=== PATIENT | female | born 1980 | race Caucasian/White ===

== ENCOUNTER → 2023-12-07 15:19 | Outpatient (REF) | payer BC, SELFPAY | LOC: HWRAD 15:19 | PROVIDERS: ATTENDING PHYSICIAN Registered Nurse | DX: M53.3 Sacrococcygeal disorders, not elsewhere classified (principal); L72.0 Epidermal cyst | CPT/HCPCS: 76705 ==

== ENCOUNTER 2025-01-26 14:56 | Emergency (ER) | payer BC, SELFPAY ==
[2025-01-26 15:05] VITALS: BP 139/97
[2025-01-26 15:44] LABS: Hematocrit 37.9 % (37.0-47.0); Hemoglobin 12.9 g/dL (12.0-16.0); Mean Corp Hgb Conc. 34.0 g/dL (33.0-37.0); Mean Corpuscular Volume 96.7 fL (81.0-99.0); Nucleated Red Blood Cells % 0 %; Platelet Count 248 10^3/uL (130-400); Red Cell Dist. Width 13.1 % (11.5-14.5)
[2025-01-26 15:47] LABS: HCG, Serum Qualitative Screen Negative
[2025-01-26 15:55] LABS: ALT (SGPT) 16 U/L (0-35); AST (SGOT) 20 U/L (14-36); Albumin 4.5 g/dl (3.5-5.0); Alkaline Phosphatase 53 U/L (38-126); Blood Urea Nitrogen 14 mg/dl (7-17); Calcium 9.4 mg/dl (8.4-10.2); Carbon Dioxide 25 mmol/L (22-30); Chloride 106 mmol/L (98-107); Glucose 103 mg/dl (70-99); Lipase 76 U/L (23-300); Potassium 3.6 mmol/L (3.5-5.1); Sodium 138 mmol/L (135-145); Total Protein 7.2 g/dl (6.3-8.2); eGFR > 60.00
[2025-01-26 15:55] LABS: Urine Character Clear (Clear)
[2025-01-26 16:21] LABS: Urine Red Blood Cell 0-2 /HPF (0-2); Urine Squamous Cell 16-20 /LPF (Few); Urine White Cell 0-2 /HPF (0-5)
--- NOTE | 2025-01-26 19:47 | ED.GENMED ---
History of Present Illness
General
Chief Complaint: Abdominal Symptoms
Source: patient
Exam Limitations: none
Time Seen by Provider: 01/26/25 19:35
History of Present Illness
History of Present Illness:
44yoF with no significant past medical history presenting with her for evaluation of abdominal pain. Symptoms initially began yesterday morning. She reports a sharp pain in her left lower quadrant which has been constant since it began.
Pain is worse with movement and palpation but improves if she is standing or sitting erect. She initially thought her pain was related to an ovulation cramp but she has never had pain last this long before. Pain is nonradiating. She was seen by
her PCP today who ordered an outpatient CT scan. This was unable to be scheduled so she was sent to the ED for evaluation. Last bowel movement was yesterday which was loose. She denies any dysuria, urinary frequency, fevers, vomiting. LMP
finished a few days ago. Prior abdominal surgeries include an umbilical hernia repair as an .
Phy Exam
General Physical Exam
General Presentation: well appearing and no apparent distress
General Skin: warm and dry
General Habitus: normal
General Mental: alert
ENT Exam
ENT Exam: normocephalic
Pulmonary Exam
Pulmonary Exam: no respiratory distress
Gastrointestinal Exam
Gastrointestinal Exam: soft, non distended and other (+Focal tenderness in LLQ. No guarding.)
Neurological Exam
Neurological Exam: alert
M[place] Coma Scale
Eye Opening: Spontaneous
Verbal Response: Oriented
Motor Response: Obeys Commands
GCS Total Score: 15
Skin Exam
Skin Exam: normal color and warm/dry
Psychiatric Exam
Psychiatric Exam: normal mood/affect
Course
Orders/Labs/Results
Orders:
Orders
01/26/25 15:13
Test Result ONCE
01/26/25 15:21
Complete Blood Count/With Diff Urgent
Comprehensive Metabolic Panel Urgent
HCG, Serum Qualitative Screen Urgent
Lipase Urgent
01/26/25 15:22
Urinalysis Reflex To Culture Urgent
Date Specimen was Collected: 01/26/25
Time Specimen was Collected: 15:14
Urine Microscopic Reflex Cult Urgent
01/26/25 19:31
CT Abd/Pel (IV only)-DH only Urgent
Comment:
Reason For Exam: llq pain
01/26/25 19:46
0.9% Sodium Chloride 1000 ml [Nss] 1,000 ml IV BOLUS
Ketorolac [Toradol] 15 mg IV NOW STA
01/26/25 20:41
HYDROmorphone [Dilaudid] 0.5 mg IV NOW STA
01/26/25 21:42
Amoxicillin 875 mg/Clav 125 mg [Augmentin 875 mg/125 mg] 1 tablet PO NOW STA
Abnormal Lab Results
01/26/25 01/26/25
15:21 15:22
WBC 14.9 H 10^3/uL
(4.8-10.8)
RBC 3.92 L 10^6/uL
(4.20-5.40)
MCH 32.9 H pg
(27.0-31.0)
Abs Immat Gran (auto) 0.1 H 10^3/uL
(0-0.05)
Absolute Neuts (auto) 11.1 H 10^3/uL
(1.4-6.5)
Absolute Monos (auto) 1.1 H 10^3/uL
(0.1-0.6)
Lymphocytes % 17.5 L %
(20.5-51.1)
Glucose 103 H mg/dl
(70-99)
Ur Occult Blood Reflex 1+ A
(Negative)
Urine Bacteria (Reflex) Few A
(Negative)
Urine Albumin (Reflex) 1+ A
(Neg - Trace)
01/26/25 15:21
01/26/25 15:21
Vital Signs
Initial and Last Documented VS:
Initial Vital Signs
Temp Pulse Resp BP Pulse Ox
98.3 F 93 16 139/97 98
01/26/25 15:05 01/26/25 15:05 01/26/25 15:05 01/26/25 15:05 01/26/25 15:05
Last Documented Vital Signs
Temp Pulse Resp BP Pulse Ox
98.3 F 69 18 121/68 99
01/26/25 15:05 01/26/25 21:55 01/26/25 21:55 01/26/25 21:55 01/26/25 21:55
MDM/Problems Addressed
Differential Diagnosis Includes:
44yoF here with LLQ pain x 1 day. Worse with movement. No f/c. VSS. She is well appearing in no distress. There is focal tenderness on abdominal exam. Differential diagnosis includes but is not limited to: Diverticulitis, colitis constipation,
kidney stone, ovarian cyst
Initial ED plan: Workup initiated in triage. Labs reveal a leukocytosis with a white count of 14.9. Remainder of labs unremarkable including normal renal function and LFTs. No overt signs of infection on urinalysis. Will obtain CT with IV
contrast. IV Toradol and fluid bolus for symptoms.
*Pulse Oximetry
SaO2: 98
Oxygen Mode of Delivery: Room air
Patient hypoxic: no
*Critical Care Note
Total Time (30-74mins, 75-104mins- exclusive of procedures): Not Applicable
Update Note
Update Note:
CT shows acute uncomplicated diverticulitis. No evidence of perforation or abscess. There is also nonspecific wall thickening of the urinary bladder. No overt signs of infection on urinalysis. No indication for hospitalization. She was started
on a course of Augmentin. Supportive care discussed including clear liquid diet. She was advised to follow-up with her PCP and strict ED return precautions reviewed. Patient in agreement with plan and was discharged in stable condition.
ED Attending Note
-
Portions of this chart may have been created with voice recognition software.� Occasional wrong word or��sound alike� substitutions may have occurred due to the inherent limitations of voice recognition software.
Discharge Plan
Departure
Patient Disposition: Home (Routine Discharge)
Date of Disposition: 01/26/25
Time of Disposition: 21:42
Patient with high blood pressure during this ER visit?: No
Discharge Problem:
Acute diverticulitis
Instructions: Diverticulitis (DC), Clear Liquid Diet
Prescriptions:
New
amoxicillin-pot clavulanate 875-125 mg tablet
1 tab PO BID 10 Days Qty: 19 0RF
Referrals:
Radha Campos MD [Family Provider, Internal Medicine]
Activity Restrictions/Additional Instructions:
Take antibiotics as prescribed. Eat a clear liquid diet until symptoms improve. Take Tylenol and ibuprofen as needed for pain.
Please follow-up with your family doctor next week. Return to the ER with any worsening symptoms including severe pain, fevers, or if you do not have any improvement in the next 3-4 days.
Interventions
Interventions:
*Risk Screen - Suicide Last Done: 01/26/25 15:05
*Neglect/Abuse Screening Last Done: 01/26/25 15:05
*Nursing Disposition Last Done: 01/26/25 22:00
OO-Kocafs-Lcwsaomcjn Assessment Last Done: 01/26/25 20:30
Discharge Date and Time
Discharge Date/Time: 01/26/25 22:00
Print Language: TELUGU
[2025-01-26] MEDS: NSS 1000 IV (19:55)
[2025-01-26] MEDS: TORADOL 15 MG IV (19:56)
[2025-01-26 19:59] VITALS: BP 133/86
[2025-01-26] MEDS: DILAUDID 0.5 MG IV (20:51)
[2025-01-26 21:55] VITALS: BP 121/68
[2025-01-26] MEDS: AUGMENTIN 875 MG/125 MG 1 TABLET PO (21:56)
== END 2025-01-26 22:00 | disposition home or self-care (01) ==
LOC: EMR 14:56
PROVIDERS: Emergency Medicine; EMERGENCY PHYSICIAN Emergency Medicine; FAMILY PHYSICIAN Internal Medicine
DX: K57.32 Diverticulitis of large intestine without perforation or abscess without bleeding (principal); D25.9 Leiomyoma of uterus, unspecified
CPT/HCPCS: 99284; 96374; 96375; 96361; 74177; 80053; 81003; 81015; 83690; 84703; 85025; Q9967